=== PATIENT | female | born 1985 | race Caucasian/White ===

== ENCOUNTER 2017-09-23 00:59 | Emergency (ER) | payer SELFPAY ==
[~2017-09-23] VITALS: Ht 149.9 cm; Wt 104.3 kg
[2017-09-23 01:14] VITALS: BP_SYST 201
[2017-09-23] MEDS ORDERED: LORazepam 1 MG TABLET PO ONE (01:45)
[2017-09-23 02:50] VITALS: BP_SYST 164
== END 2017-09-23 02:50 | disposition home or self-care (01) ==
LOC: SED 00:59
DX: F41.0 Panic disorder [episodic paroxysmal anxiety] (principal)
CPT/HCPCS: 99283

== ENCOUNTER 2018-03-31 00:06 | Emergency (ER) | payer SELFPAY ==
[~2018-03-31] VITALS: Ht 149.9 cm; Wt 99.8 kg
--- NOTE | 2018-03-31 00:15 | NUR ---
12 lead EKG done in triage room and shown to Dr. Geiger.
[2018-03-31 00:40] VITALS: BP_SYST 156
--- NOTE | 2018-03-31 01:00 | NUR ---
Pt states that she has been really stressed at work and developed a 7/10 headache, lightheadness, and neck stiffness. Will contineu to monitor. No distress noted. AAOx4.
--- NOTE | 2018-03-31 01:00 | NUR ---
Patient to ER bed 5 to gown for evaluation. Side rails up. Report given to Mario LOPEZ.
--- NOTE | 2018-03-31 02:17 | NUR ---
ER Dr. Geiger at bedside examining patient.
[2018-03-31] MEDS: IBUPROFEN 600 MG TABLET PO ONE ×2 (02:29→02:34)
[2018-03-31 02:37] VITALS: BP_SYST 156
--- NOTE | 2018-03-31 02:37 | NUR ---
Patient given written and verbal discharge instructions and verbalizes understanding. ER MD discussed with patient the results and treatment provided. Patient in stable condition. ID arm band removed. Patient educated on pain management and to follow up with PMD. Pain Scale 0/10. Opportunity for questions provided and answered. Medication side effect fact sheet provided.
== END 2018-03-31 02:37 | disposition home or self-care (01) ==
LOC: SED 00:06
DX: G43.909 Migraine, unspecified, not intractable, without status migrainosus (principal)
CPT/HCPCS: 93005; 99283